=== PATIENT | female | born 1970 | race Caucasian/White ===

== ENCOUNTER 2022-04-26 11:10 | Outpatient (CLI) | payer OTHER ==
[2022-04-26 11:32] LABS: BASOPHILS # (AUTO) 0.1 10^3/uL (0.0-0.1); BASOPHILS % (AUTO) 0.6 %; EOSINOPHILS # (AUTO) 0.3 10^3/uL (0.0-0.7); EOSINOPHILS % (AUTO) 2.9 %; HCT - HEMATOCRIT 36.6 % (37.0-47.0); HGB - HEMOGLOBIN 12.6 g/dL (12.0-16.0); MEAN CORPUSCULAR HEMOGLOBIN 33.2 pg (27.0-31.0); MEAN CORPUSCULAR HGB CONC 34.4 g/dL (32.0-36.0); MEAN CORPUSCULAR VOLUME 96.3 fL (81.0-99.0); MEAN PLATELET VOLUME 9.7 fL (7.9-10.8); MONOCYTES # (AUTO) 0.6 10^3/uL (0.0-1.0); MONOCYTES % (AUTO) 5.8 %; NEUTROPHILS # (AUTO) 6.6 10^3/uL (1.5-6.6); NEUTROPHILS % (AUTO) 69.5 %; PLT - PLATELET COUNT 176 10^3/uL (130-450); RED CELL DISTRIBUTION WIDTH 12.6 % (12.0-15.0); WHITE BLOOD COUNT 9.5 x10^3/uL (4.8-10.8)
[2022-04-26 11:40] LABS: CALCIUM 9.6 mg/dL (8.5-10.3); POTASSIUM 3.6 mmol/L (3.5-5.0)
[2022-04-26 11:46] LABS: INR 0.9 (0.8-1.2); PT - PROTHROMBIN TIME 10.7 secs (9.9-12.6)
== END 2022-04-26 11:11 | disposition home or self-care (01) ==
LOC: LAB 11:10
PROVIDERS: ATTEND Internal Medicine Cardiovascular Disease
DX: Z86.79 Personal history of other diseases of the circulatory system (principal)
CPT/HCPCS: 36415; 80048; 85025; 85610

== ENCOUNTER 2023-07-16 12:18 | Emergency (ER) | payer OTHER ==
[2023-07-16] MEDS ORDERED: iohexoL-300 100 ML VIAL ONE (13:24)
[2023-07-16 13:34] LABS: BASOPHILS # (AUTO) 0.1 10^3/uL (0.0-0.1); BASOPHILS % (AUTO) 0.5 %; EOSINOPHILS # (AUTO) 0.2 10^3/uL (0.0-0.7); EOSINOPHILS % (AUTO) 1.8 %; HCT - HEMATOCRIT 46.7 % (37.0-47.0); HGB - HEMOGLOBIN 15.9 g/dL (12.0-16.0); LYMPHOCYTES # (AUTO) 2.6 10^3/uL (1.5-3.5); LYMPHOCYTES % (AUTO) 28.2 %; MEAN PLATELET VOLUME 9.9 fL (7.9-10.8); MONOCYTES # (AUTO) 0.5 10^3/uL (0.0-1.0); MONOCYTES % (AUTO) 5.9 %; NEUTROPHILS # (AUTO) 5.8 10^3/uL (1.5-6.6); NEUTROPHILS % (AUTO) 63.3 %; PLT - PLATELET COUNT 242 10^3/uL (130-450); RED BLOOD COUNT 4.97 10^6/uL (4.20-5.40); RED CELL DISTRIBUTION WIDTH 12.7 % (12.0-15.0); WHITE BLOOD COUNT 9.2 x10^3/uL (4.8-10.8)
[2023-07-16 13:51] LABS: ALBUMIN 4.7 g/dL (3.2-5.5); ALBUMIN/GLOBULIN RATIO 1.2 (1.0-2.2); BILIRUBIN,TOTAL 0.5 mg/dL (0.2-1.0); CALCIUM 10.7 mg/dL (8.5-10.3); CREATININE 1.1 mg/dL (0.6-1.3); MAGNESIUM 1.7 mg/dL (1.7-2.3); POTASSIUM 4.1 mmol/L (3.5-4.5); TOTAL PROTEIN 8.5 g/dL (6.4-8.9)
[2023-07-16 14:03] LABS: THYROID STIMULATING HORMONE 1.31 uIU/mL (0.34-5.60)
--- NOTE | 2023-07-16 15:40 | CT Report ---
PROCEDURE: Head WO INDICATIONS: slurred speech confusion TECHNIQUE: Noncontrast 4.5 mm thick angled axial sections acquired from the foramen magnum to the vertex. For r adiation dose reduction, the following was used: automated exposure control, adjustment of mA and/or kV according to patient size. COMPARISON: None. FINDINGS: Image quality: Excellent. CSF spaces: Basal cisterns are patent. No extra-axial fluid collections. Ventricles are normal in size and shape. Brain: No midline shift. No intracranial masses or hemorrhage. Oseguera-white matter interface is norm al. Age-related volume loss and mild small vessel ischemic change. Intracranial carotid calcificatio ns. 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 Skull and face: Calvarium and visualized facial bones are intact, without suspicious lesions. Sinuses: Visualized sinuses and mastoids are clear. IMPRESSION: 1. Old small infarcts. 2. No acute intracranial process. Reviewed by: Leland White MD on 07/16/2023 3:39 PM PDT Approved by: Leland White MD on 07/16/2023 3:39 PM PDT Station ID: [id number]
--- NOTE | 2023-07-16 16:10 | CT Report ---
PROCEDURE: Angio Head/Neck INDICATIONS: slurred speach, numbness, confusion TECHNIQUE: After the administration of intravenous contrast, 1 mm thick sections acquired from the aortic arch t hrough the [place]. 3-dimensional rqhmywy-dfaszsqms-bgadcztayi (MIP) and/or volume renderin g reformats were acquired of the central intracranial vasculature and neck separately. For radiation dose reduction, the following was used: automated exposure control, adjustment of mA and/or kV acco rding to patient size. CONTRAST: Omni 300 80ml COMPARISON: None. FINDINGS: Image quality: Diagnostic. HEAD CT: Previous refer to same day CT of the head. HEAD CT ANGIOGRAPHY: Anterior circulation: Atherosclerotic calcifications of the bilateral intracranial internal carotid a rteries with high-grade stenosis of the left terminal segment. Areas of mild stenosis of the right IC A.. The flow within the paired anterior cerebral arteries is normal and symmetric. The flow within the middle cerebral arteries is normal and symmetric. The anterior communicating artery is seen. No aneurysms are seen. Posterior circulation: Visualized portions of the vertebral arteries demonstrate normal caliber, and join to form a normal appearing basilar artery. Flow within the posterior cerebral arteries is norm al and symmetric. No aneurysms are seen. NECK CT ANGIOGRAPHY: Carotid system: The great vessels demonstrate a conventional anatomy as they arise from the aortic a rch. The origins of the common carotid arteries appear patent. The common carotid arteries demonstr ate normal caliber and courses. Atherosclerotic calcifications of the bilateral carotid bifurcations. No significant stenosis on the right. Less than 50% stenosis on the left.. The internal carotid art eries demonstrate normal calibers and courses. Posterior circulation: The origins of the vertebral arteries both appear widely patent. The more chavez perior extracranial portions of both vertebral arteries also demonstrate normal courses and calibers. They join to form a normal appearing basilar artery. Soft tissues: Visualized neck soft tissues demonstrate no suspicious abnormalities. Bones: No suspicious bony lesions. Visualized cervical spine appears normally aligned. Degenerative changes of the spine. IMPRESSION: Atherosclerotic vascular calcifications of the intracranial ICAs with high-grade stenosis of the left terminal ICA. No large vessel occlusion or significant stenosis of the intracranial arteries otherwi se. No significant abnormality is seen within the arteries of the neck. Atherosclerotic vascular calcific ations of the bilateral carotid bulbs with less than 50% stenosis on the left, no significant stenosi s on the right. The estimate of stenosis included in the report of the imaging study was calculated using the NASCET method Reviewed by: Ti Martinez MD on 07/16/2023 4:08 PM PDT Approved by: Ti Martinez MD on 07/16/2023 4:08 PM PDT Station ID: [id number]
--- NOTE | 2023-07-16 16:42 | ED Physician Documentation ---
History of Present Illness - Stated complaint Stated Complaint: NUMBNESS,LOSS OF CONTROL,SLURRED SPEECH - Chief complaint Chief Complaint: Neuro - Additonal information Additional information: 53-year-old female with history of TIAs, Hypertension, tobacco dependence, alcohol dependence presents emergency department for right arm numbness and weakness. Patient says that she had a stroke in January 2022 and she has always had difficulty with her right arm but over the last several weeks she has been noticing it getting more weak. She is also noticed on Friday right leg weakness to the point where she collapsed at work. Yesterday patient noticed right upper lip is completely numb which is what brings her into the emergency department today. She is on aspirin daily as well as hydrochlorothiazide but she has been taken off her out of a statin by her primary care provider and not on any additional antiplatelet medication. No recent fevers or chills she said that she has a roommate who noticed an episode of slurred speech that has now fully resolved. She is able to ambulate today without any difficulty for the most part her symptoms have fully resolved aside from the right upper lip tingling and right hand has a decrease sensation to it PD PAST MEDICAL HISTORY - Past Medical History Cardiovascular: Hypertension Neuro: CVA, TIA - Past Surgical History Past Surgical History: No - Present Medications Home Medications: Ambulatory Orders Medication Instructions Recorded Confirmed Aspirin [Aspirin EC] 81 mg PO DAILY 07/16/23 07/16/23 Atorvastatin [Lipitor] 40 mg PO QPM 30 Days #60 tablet 07/16/23 Clopidogrel Bisulfate [Plavix] 75 mg PO DAILY 20 Days #20 tab 07/16/23 Cyanocobalamin [Vitamin B-12] 1,500 mcg PO DAILY 07/16/23 07/16/23 Losartan Potassium 50 mg PO HS 07/16/23 07/16/23 Vitamin B Complex/Folic Acid 1 tab PO DAILY 07/16/23 07/16/23 [Balanced B-50 Complex Tablet] hydroCHLOROthiazide [Hydrodiuril] 25 mg PO DAILY 07/16/23 07/16/23 - Allergies Allergies/Adverse Reactions: Allergies Allergy/AdvReac Type Severity Reaction Status Date / Time No Known Drug Allergies Allergy Verified 07/16/23 12:27 - Social History Does the pt smoke?: Yes Smoking Status: Current every day smoker Does the pt drink ETOH?: Yes ETOH Use: Beer Does the pt have substance abuse?: No PD ED PE NORMAL - Vitals Vital signs reviewed: Yes - General General: Alert and oriented X 3, No acute distress, Well developed/nourished - HEENT HEENT: Atraumatic, PERRL, EOMI, Moist mucous membranes - Neck Neck: Supple, no meningeal sign, No JVD - Cardiac Cardiac: RRR, No gallop, Strong equal pulses - Respiratory Respiratory: No respiratory distress, Clear bilaterally - Abdomen Abdomen: Normal bowel sounds, Soft, Non tender, Non distended - Neuro Neuro: Alert and oriented X 3, No sensory deficit, Normal speech, Other (5 out of 5 strength to bilateral upper extremities and bilateral lower extremities. Decreased sensation to right upper lip.) Eye Opening: Spontaneous Motor: Obeys Commands Verbal: Oriented GCS Score: 15 - Psych Psych: Normal mood, Normal affect Results - Vitals Vitals: Vital Signs - 24 hr 07/16/23 07/16/23 07/16/23 12:19 18:03 19:29 Temperature 36.1 C L 36.9 C Heart Rate 83 72 69 Respiratory 16 18 18 Rate Blood Pressure 159/86 H 138/94 H 127/88 H O2 Saturation 100 100 98 Oxygen O2 Source Room air - EKG (time done) 1352 EKG releavant findings:: EKG personally interpreted by author of this note. Relevant findings are: Rate: Rate (enter#) (73) Rhythm: NSR [place]: Normal Intervals: Normal AR QRS: Normal Ischemia: Normal ST segments Other comments: Other comments (probable left atrial enlargement) Computer interpretation: Agree with computer - Labs Labs: Laboratory Tests 07/16/23 07/16/23 13:15 13:15 WBC 9.2 RBC 4.97 Hgb 15.9 Hct 46.7 MCV 94.0 MCH 32.0 H MCHC 34.0 RDW 12.7 Plt Count 242 MPV 9.9 Neut # (Auto) 5.8 Lymph # (Auto) 2.6 [place] # (Auto) 0.5 Eos # (Auto) 0.2 Baso # (Auto) 0.1 Absolute Nucleated RBC 0.00 Nucleated RBC % 0.0 Sodium 132 L Potassium 4.1 Chloride 95 L Carbon Dioxide 30 Anion Gap 7.0 BUN 23 H Creatinine 1.1 Estimated GFR (MDRD) 52 L Glucose 110 H Calcium 10.7 H Magnesium 1.7 Total Bilirubin 0.5 AST 26 ALT 33 Alkaline Phosphatase 84 Total Protein 8.5 Albumin 4.7 Globulin 3.8 Albumin/Globulin Ratio 1.2 Lipase 29 TSH 1.31 - Rads (name of study) CTA head and neck Relevant Findings:: Final report received, EMP independent interpretation of test, Other (Arthrosclerotic vascular calcification of the intracranial ICAs with high-grade stenosis of the left terminal ICA. No large vessel occlusion, No significant abnormality seen within the arteries of the neck. Less than 50% stenosis on the left carotid bulb) CT head without Relevant Findings:: Final report received, EMP independent interpretation of test, Other (Old small infarcts, no acute intracranial abnormalities) MRI brain with and without Relevant Findings:: Final report received, EMP independent interpretation of test, Other (Small acute infarcts involving left posterior frontal parietal cortex consistent with small acute infarcts in the left MCA distribution. No intracranial hemorrhage or midline shift or masses. Old lacunar infarcts at the bilateral basal) PD Medical Decision Making - ED course ED course: 53 yo female presents to the ER for right arm weakness, intermittent left leg weakness, and left lip numbness. Differential include but are not limited to TIA, CVA, MS, electrolyte abnormalities, mass, ICH. Labs are collected no leukocytosis, mild hyponatremia 132, BUN 23, GFR 52 she was given some IV fluids f for mild CONSUELO. Calcium slightly elevated 10.7. CT angio head and neck complete, Reveals arthrosclerotic vascular calcifications of the intracranial ICA with high grade stenosis of the left terminal ICA no large vessel occlusion or significant stenosis of the intracranial arteries. No significant abnormalities were seen within the neck arteries. Atherosclerotic vascular calcification of bilateral carotid bulbs with less than 50% stenosis on the left no significant stenosis on the right. CT head without complete And does not reveal any acute intracranial abnormalities or findings. Brain MRI with and without completeAnd does reveal small acute infarcts involving left posterior frontal parietal cortex consistent with small acute infarction of the left MCA distribution. No acute intracranial bleed or midline shift no other masses or intracranial hemorrhages. Old lacunar infarcts in bilateral basal ECG complete and does not reveal a-fib and pt denies any hx or symptoms of a- fib. She is not on any statins as she was taken off them by her PCP and is only on daily baby aspirin. We talked about hospitalization but given that we were able to complete all imaging and labs in the ER and pt is completely neurologically intact aside from right upper lip numbness there are no further interventions that would likely be warranted. She was started on 21 day course dual anti plt therapy, initial plavix dose given here in the ER as well as high dose statin and these medications were sent to her preferred pharmacy. The patient, myself, and her believe it is fair for her to discharge home at this time and she is going to make an appt with her PCP RASHIDA for new TIA findings as well as continue discussion for risk stratification and support with coming off alcohol and smoking cessation. Pt understands strict ER return precautions and understand discharge planning, all questions have been answered. Departure - Departure Disposition: Home, Self Care Clinical Impression: TIA (transient ischemic attack) Instructions: TIA Prescriptions: Atorvastatin [Lipitor] 40 mg PO QPM 30 Days #60 tablet Clopidogrel Bisulfate [Plavix] 75 mg PO DAILY 20 Days #20 tab Comments: Thank you for trusting us with your care, we have evaluated you for Your right arm weakness and right upper lip numbness. We have found that you did have a new TIA as we have found on MRI small acute infarcts involving the left posterior frontal parietal cortex. I believe that is very important that you remain on statins most likely indefinitely I have prescribed you out of a statin here in the emergency department as well as an antiplatelet medication called Plavix. You will take Plavix and aspirin daily for the next 21 days. After 21 days I would recommend going on Plavix only but this is something I want you to discuss with your primary care provider. Noticed a primary care provider for possible neurology referral and also discussed with your primary care provider smoking cessation and support with alcohol cessation. You have now had 2 TIAs so you are very high risk for this happening again as well as possible heart attack. Please come back to the emergency department if you are having any new strokelike symptoms chest pain, shortness of breath, or any other concerning symptoms.Below are the MRI results. MRI IMPRESSION: 1. Small acute infarcts involving left posterior frontal parietal cortex consistent with small acute infarctions in left MCA distribution. 2. No acute intracranial bleed, midline shift or mass effect. No area of abnormal intracranial enhancement. 3. Old lacunar infarcts in bilateral basal. CT angio: IMPRESSION: Atherosclerotic vascular calcifications of the intracranial ICAs with high-grade stenosis of the left terminal ICA. No large vessel occlusion or significant stenosis of the intracranial arteries otherwise. No significant abnormality is seen within the arteries of the neck. Atherosclerotic vascular calcifications of the bilateral carotid bulbs with less than 50% stenosis on the left, no significant stenosis on the right. The estimate of stenosis included in the report of the imaging study was calculated using the NASCET method Forms: PCP List Discharge Date/Time: 07/16/23 19:30
[2023-07-16] MEDS ORDERED: GADOTERATE MEGLUMINE 10 MMOL/20 ML VIAL ONE (16:54)
[2023-07-16] MEDS: GADOTERATE MEGLUMINE 10 MMOL/20 ML VIAL IVP ONE (17:23)
[2023-07-16] MEDS: iohexoL-300 100 ML VIAL IVP ONE (18:07)
[2023-07-16] MEDS: SODIUM CHLORIDE 0.9% 1,000 ML IV ONE (18:24)
--- NOTE | 2023-07-16 18:42 | MRI Report ---
PROCEDURE: Brain W/WO INDICATIONS: right hand numbness, right lip numbness CONTRAST: clariscan 16.2 TECHNIQUE: Noncontrast axial T1 spin echo, axial T2 fast spin echo, sagittal and axial FLAIR, coronal T2 fast sp in echo, axial gradient echo, axial diffusion and ADC through the brain. After the administration of contrast, axial and coronal T1 spin echo with fat saturation through the brain. COMPARISON: None. FINDINGS: Image quality: Excellent. CSF spaces: Basal cisterns are patent. No extra-axial fluid collections. Ventricles are normal in size and shape. Brain: No midline shift. No intracranial bleeds or masses. Likely old lacunar infarcts are seen in bilateral basal ganglia. No abnormal intracranial enhancement. The brainstem appears normal. Diffus ion-weighted images demonstrate multiple small foci of restricted diffusion involving left posterior frontal parietal cortex suggestive of small acute infarctions in left MCA distribution. Normal intrav ascular flow voids are present. Skull and face: Calvarial marrow is normal in signal. Orbits appear normal. Sinuses: Sinuses and mastoids appear clear. IMPRESSION: 1. Small acute infarcts involving left posterior frontal parietal cortex consistent with small acute infarctions in left MCA distribution. 2. No acute intracranial bleed, midline shift or mass effect. No area of abnormal intracranial enhanc ement. 3. Old lacunar infarcts in bilateral basal. Reviewed by: Michael Weinberg MD on 07/16/2023 6:40 PM PDT Approved by: Michael Weinberg MD on 07/16/2023 6:40 PM PDT Station ID: [id number]
[2023-07-16] MEDS: CLOPIDOGREL 75 MG TABLET PO STA (19:20)
[2023-07-16] MEDS: ATORVASTATIN 40 MG TABLET PO STA (19:20)
[2023-07-16] MEDS: ASPIRIN 325 MG TABLET PO STA (19:20)
[2023-07-16 19:33] VITALS: BP 127/88; O2SAT 98
== END 2023-07-16 19:30 | disposition home or self-care (01) ==
LOC: ED 12:18
DX: G45.9 Transient cerebral ischemic attack, unspecified (principal); E87.1 Hypo-osmolality and hyponatremia; I10 Essential (primary) hypertension; F17.200 Nicotine dependence, unspecified, uncomplicated; Z86.73 Personal history of transient ischemic attack (TIA), and cerebral infarction without residual deficits; Z79.82 Long term (current) use of aspirin; Z79.899 Other long term (current) drug therapy; Z79.02 Long term (current) use of antithrombotics/antiplatelets
CPT/HCPCS: 36415; 70450; 70496; 70498; 70553; 80053; 83690; 83735; 84443; 85025; 93005; 99284; 99285; A9270; A9575; Q9967